=== PATIENT | female | born 1965 | race Hispanic/Latino ===

== ENCOUNTER → 2023-12-01 | Day surgery (SDC) | payer OTHER ==
[~2023-12-01] MED LIST: ALVERT PO; DEXAMETHASONE SOD PHOS INJ 4 MG/ML SDV ONE; EPINEPHRINE HCL 1:1000 1ML 1 MG/ML AMP ONE; FENTANYL CITRATE/PF 100MCG/2 ML INJ ONE; LIDOCAINE 1% W/EPINEPHRINE 20 ML VIAL ONE; LIDOCAINE HCL 2% LOCAL INJ 5 ML SDV VIAL INJ ONE; MIDAZOLAM HCL 2 MG/2 ML VIAL ONE; ONDANSETRON HCL INJ 2MG/ML 2ML 2 MG/ML VIAL ONE; PROBIOTIC1 EAC1 PO; PROPOFOL IV EMULSION 10 MG/ML 20 ML VIAL ONE; ROCURONIUM BROMIDE 10 MG/ML 5ML VIAL IV ONE; SEVOFLURANE INHAL SOLN 250 ML PEN BTL ONE; SUGAMMADEX SODIUM 200 MG/2 ML VIAL IV ONE; ZYRTEC10 MG PO; [UNRECOGNIZED DRUG - OTHER] PO
[2023-12-01] MEDS: LACTATED RINGER'S 1,000 ML ONE (09:28)
[2023-12-01 11:05] VITALS: TEMP 98.4
[2023-12-01] MEDS: LABETALOL HCL 20 ML ONE (11:35)
[2023-12-01] MEDS: ACETAMINOPHEN 1000 MG/100 ML 100 ML IV ONE (11:35)
[2023-12-01] MEDS: MAGNESIUM SULFATE 2GM/50ML 50 ML IV STA (12:33)
[2023-12-01 13:25] VITALS: BP 167/96; PULSE 71; RESP 16; O2SAT 97
== END | disposition home or self-care (01) ==
LOC: OR 08:26
PROVIDERS: ATTEND Otolaryngology Otolaryngology/Facial Plastic Surgery
DX: J34.2 Deviated nasal septum (principal); M95.0 Acquired deformity of nose; J34.89 Other specified disorders of nose and nasal sinuses; Z88.2 Allergy status to sulfonamides
CPT/HCPCS: 88300; 88302; 88311; 93005; J0171; J1100; J2001; J2250; J2405; J3475